=== PATIENT | female | born 1975 | race Caucasian/White ===

== ENCOUNTER 2024-09-07 10:01 | Outpatient (AMB) | payer OTHER, SELFPAY ==
--- NOTE | 2024-09-07 10:26 | A.OFFVIS_ITS ---
Intake Visit Reasons: CTS Allergies No Known Allergies Allergy (Verified 09/06/24 16:15) Medication List - Last Reconciled 09/07/24 by Ortiz Bruno MD amitriptyline 25 mg PO BEDTIME amlodipine 2.5 mg PO DAILY loratadine (Claritin) 10 mg PO DAILY omeprazole 20 mg PO DAILY ondansetron HCl 4 mg PO DAILY PRN rizatriptan take 1 tab at onset of headache; if no relief may repeat 1 tab after at least 2 hrs; max = 3 tabs/24 hr PO HPI Comments Details: No headache recurrence in the last month. Neck feels good doing home exrcises. She has cervical degenerative disc disease at C5-6, and headaches that started about a year ago and have been occurring once or twice a week.? She usually wakes up with it.?She used to get migraines which he gets rather infrequently once or twice a year now.? The migraines are associated with nausea, vomiting, photophobia and sonophobia and she has to go to bed for a day.? Migraines are triggered by MSG.? Her mother has ocular migraines.? Current headaches are very different from her migraines.? When she gets these headaches, she feels a little loopy and has difficulty with her train of thought ?and feels like she is in a fog. For the last year, she has occasional numbness and tingling in the hands right greater than left and sometimes drops things that she is holding.? 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 She has trouble initiating and maintaining sleep.? She takes melatonin, and magnesium.? There's no history of head or neck trauma. 09/01/24 NCV/ EMG of upper limbs was normal. [facility] Medical History (Updated 09/07/24 @ 10:35 by Ortiz Bruno MD) Insomnia Cervical disc disease Hypertension Social History (Updated 09/06/24 @ 16:14 by Princess Junior MA) Alcohol intake: never Patient Tobacco Use Status: Never used Tobacco Physical Exam Neuro Other: Abnormal neurological findings:??none.? Mental Status:?alert and oriented X 3,?Normal attention, orientation, memory and affect.? Cranial Nerves:?Pupils are equal, round and reactive to light. Fundoscopy shows normal disc bilaterally. External occular muscles are intact. Visual bach are full, no ptosis. Face is symmetrical, no facial weakness or droop. Facial sensations are normal. Tongue protrudes in midline. Palate elevates symm etrically. Shoulder shrugging is normal..? Motor Examination:?Normal muscle tone, bulk and strength,?No atrophy or fasciculations,?No drift of the extended upper extremities,?Deep tendon reflexes are 2+?,?Plantars are flexor?.? Motor Strength:?Proximal Muscles (out of 5):5Distal Muscles (out of 5):5Neck Flexors (out of 5):5Neck Extensors (out of 5):5Deltoid (out of 5):5Biceps (out of 5):5Triceps (out of 5):5Serratus Anterior (out of 5):5Wrist Extensors (out of 5):5APB (out of 5):5Finger Spread (out of 5):5Ileopsoas (out of 5):5Quadriceps (out of 5):5Hamstrings (out of 5):5Tibialis Anterior (out of 5):5Peronei (out of 5):5EDB (out of 5):5Gastrocnemius (out of 5):5Straight Leg Raising:?90 degrees.? Sensory Exam:?Normal light touch, temperature, pinprick, vibration and joint- position sensations?,?Rhomberg sign is absent.? Coordination:?no ataxia,?no titubation,?yxmnea-[id number]-epnx, pvud-kzcr-zfmg test and rapid alternating movements were normal.? Gait Exam:?Within normal limits.? Cerebellar Signs:?Kkrouv-rt-sbnn and gqfp-qo-owxr is normal,?no dysdiadochokinesia?.? Extrapyramidal System:?No tremor, rigidity with normal facial expressions,?No bradykinesia, no bradyphrenia. Normal arm swing and posture. No propulsion or retropulsion.? Speech:?Normal,?no dysphasia or dysarthria..? Mini Mental Status Exam Level of Consciousness:?Alert.? Orientation:?Knows correct year, month, date, day and season,?Knows correct city, county and state. Knows correct location and floor.? Registration:?Able to register 3 objects.? Attention:?Serial 7's performed accurately.? Recall:?Able to recall 3 out of 3 objects.? Language:?Normal spontaneous speech, fluency, repetition,naming, comprehension, reading and writing.? Total Score:?30/30.? General Examination GENERAL APPEARANCE:?normal,?in no acute distress.? HEAD:?normocephalic,?atraumatic.? EYES:?sclera non-icteric,?conjunctiva clear.? EARS:?auditory canal clear,?tympanic membrane intact, clear.? NOSE:?no lesions.? ORAL CAVITY:?gums normal,?mucosa moist,?no lesions.? THROAT:?clear.? NECK/THYROID:?no cervical lymphadenopathy,?thyroid normal,?neck supple, full ra nge of motion,?no carotid bruit.? SKIN:?no rashes,?no significant birthmarks.? HEART:?S1, S2 normal,?no murmurs.? LUNGS:?clear anteriorly and posteriorly.? CHEST:?no gross rib deformity,?clear to auscultation.? BACK:?normal exam of spine.? EXTREMITIES:?no edema.? PERIPHERAL PULSES:?normal.? PSYCH:?alert, oriented,?cognitive function intact,?cooperative with exam.? Assessment & Plan Assessment & Plan (1) Tension headache: Code(s): G44.209 - Tension-type headache, unspecified, not intractable Category: Medical (2) Migraine: Code(s): G43.909 - Migraine, unspecified, not intractable, without status migrainosus Category: Medical (3) Carpal tunnel syndrome: Code(s): G56.00 - Carpal tunnel syndrome, unspecified upper limb Category: Medical Plan Continue current meds. Wear wrist splint at night as needed Medications: New amitriptyline 25 mg PO BEDTIME 90 tabs 2RF Coding Level of Care Code Est Pt Level 4 (24790) Diagnoses Tension headache G44.209 Migraine G43.909 Carpal tunnel syndrome G56.00
--- OUTSIDE RECORDS SUMMARY | 2024-09-07 11:03 | XMS_ITS | Clinical Summary ---
Author Organization [place] [address] [address] [facility] Building Address [facility] [place] [address] Phone Care Team Providers Care Autopsy Pathologist Name Role Phone Dana Mcfadden NP Primary Care Provider Allergies No known active allergies Medications OMEPRAZOLE ORAL Take by mouth 1 (one) time each day. Active cholecalciferol, vitamin D3, (VITAMIN D3 ORAL) Take by mouth. Active loratadine/pseud oephedrine (CLARITIN-D 12 HOUR ORAL) Active amLODIPine (NORVASC) 2.5 mg tablet TAKE 1 TABLET BY MOUTH 1 TIME EACH DAY. 90 tablet 1 07/19/2024 Active Active Problems Problem Noted Date Diagnosed Date Foraminal stenosis of cervical region 07/09/2024 Assessment & Plan (07/10/2024 12:17 AM EDT): Patient describes chronic mild neck pain x 2 years approximately, over the last year she has noticed tingling that started in the hands, more of a throbbing pulsing sensation without pain, numbness in her hands, right >left. She notes she will drop things at times. She gets occipital headaches, sometimes frontal headaches. 2 weeks ago she had an episode where she was holding a student's hand at school, they dropped down and pulled on her right arm, since then her neck pain has been much worse. She also notes that she has her neck in flexion, reads a lot, sometimes falls asleep slouched forward, which she thinks might contribute as well. The n/t in her hands does not wake her up at night or get worse with wrist extension/flexion. Her hands can feel stiff in the morning. She has been using Heat on her neck, no other OTC meds/topicals. She rates her pain 7/10. She had C/S MRI with overall mild degenerative changes, but she does have C5-6 disc bulging with b/l foraminal stenosis. I reviewed the MRI images with her and her on the computer. Ms. Ho has C5-6 foraminal stenosis, cervical spondylosis, negative Tinel's and reverse prayer sign. I did not order EMG/NCS, does not seem like CTS. We talked about conservative treatment options for neck pain and radiculopathy, like PT with traction, TENS unit, acupuncture. She would like to try these txs, rx given. We talked about good posture and core strengthening exercises that will not put tension/stress on her neck like bug, bird dogs, standing marches, haloes, bridges, etc. she works out regularly at the gym (used to go with her to work out together but he is recovering from knee surgeries), will avoid any exercises that increase her neck pain. She can go over rec: stretches and exercises with PT as well. All questions answered, I asked her to call with any concerns or questions. She will call for f/u appt if she has persistent neck pain and hand n/t. (She has upcoming appt with neurology for her Brain MRI results of pineal cyst.) HTN (hypertension), benign 03/01/2024 Vitamin D deficiency 09/24/2023 Allergic rhinitis 06/05/2022 Encounters Date Type Department Care Team Description 08/23/2024 7:30 AM EDT Treatment [address] [phone] Ronnie Yan, SUBSCRIPTION CREW LEADER Foraminal stenosis of cervical region (Primary Dx) 08/18/2024 4:30 PM EDT Treatment [facility] [address] [phone] Olga Bills, PT Foraminal stenosis of cervical region (Primary Dx) 08/16/2024 7:30 AM EDT Treatment [address] [phone] Ronnie Yan, SUBSCRIPTION CREW LEADER Foraminal stenosis of cervical region (Primary Dx) 08/09/2024 7:30 AM EDT Treatment [address] [phone] Ronnie Yan, SUBSCRIPTION CREW LEADER Foraminal stenosis of cervical region (Primary Dx) 08/06/2024 7:30 AM EDT Treatment [address] [phone] Olga Bills, PT Foraminal stenosis of cervical region (Primary Dx) 08/03/2024 7:30 AM EDT Treatment [address] [phone] Olga Bills, PT Foraminal stenosis of cervical region (Primary Dx) 07/14/2024 4:00 PM EDT Evaluation [address] [phone] Olga Bills, PT Foraminal stenosis of cervical region (Primary Dx) 07/09/2024 10:30 AM EDT Consult Neurosurgery [facility] [address] [phone] Courtney Foreman PA Foraminal stenosis of cervical region 06/23/2024 3:12 PM EDT - 06/23/2024 11:59 PM EDT Hospital Encounter Radiology Department - [address] [phone] Hand weakness; Hand tingling; Acute nonintractable headache, unspecified headache type; Altered mental status, unspecified altered mental status type Discharge Disposition: Home or Self Care 06/23/2024 3:11 PM EDT - 06/23/2024 11:59 PM EDT Hospital Encounter Radiology Department - [address] [phone] Hand weakness; Hand tingling; Acute nonintractable headache, unspecified headache type; Altered mental status, unspecified altered mental status type Discharge Disposition: Home or Self Care from Last 3 Months Immunizations Name Administration Dates Next Due Moderna SARS-CoV-2 COVID-19, mRNA, LNP-S, preservative free 01/08/2022 Surgical History Surgery Date Site/Laterality Comments OTHER SURGICAL HISTORY 2014 SUBTOTAL THYROIDECTOMY; COMMENT: benign pathology TONSILLECTOMY OTHER SURGICAL HISTORY BREAST MASS CORE BIOPSY SPCMN PATHOLGY EXAM Medical History Medical History Date Comments Cyst, breast Nontoxic single thyroid nodule Family History Medical History Relation Name Comments Other cancer Aunt Coronary artery disease Father Heart attack Father Breast cancer Paternal Grandmother Stroke Paternal Grandmother Coronary artery disease Sister Heart attack Sister Relation Name Status Comments Aunt Alive Father Paternal Grandmother Sister Social History Tobacco Use Types Packs/Day Years Used Date Smoking Tobacco: Never Smokeless Tobacco: Never Tobacco Cessation:Counseling Given: Not Answered Alcohol Use Standard Drinks/Week Comments Not Currently 0 (1 standard drink = 0.6 oz pur e alcohol) Housing Instability Answer Date Recorde d Are you worried that in the next 2 months you may not have stable housing? No 05/30/2024 Food Access & Nutrition Answer Date Rec orded Do you have access to a vari ety of food including fruits and vegetables? Yes 05/30/2024 Access to Healthcare Answer Date Record ed Within the last 3 months, ho w many times did you visit the emergency department for your medical care? 0 05/30/2024 Health Literacy Answer Date Recorded How often do you need to hav e someone help you when you read instructions, pamphlets, or other written material from your doctor or pharmacy? Never 05/30/2024 Caregiver: How often do you need to have someone help you when you read instructions, pamphlets, or other written material from your doctor or pharmacy? Not on file 05/30/2024 Financial Risk Answer Date Recorded How hard is it for you to pa y for the very basics like food, housing, medical care, and air conditioning / heating? Not very hard 05/30/2024 Transportation Answer Date Recorded Has the lack of transportati on kept you from meetings, work, or from getting things needed for daily living? No Has the lack of transportati on kept you from medical appointments or from getting medications? No 05/30/2024 Social Isolation Answer Date Recorded How often do you feel lonely or isolated from th ose around you? Rarely 05/30/2024 Food Risk Answer Date Recorded Within the past 12 months we worried whether our food would run out before we got money to buy more. Never true 05/30/2024 Within the past 12 months th e food we bought just didn't last and we didn't have money to get more. Never true 05/30/2024 Dependent Care Answer Date Recorded Do you need help finding or paying for care for your loved ones. For example, child development professor or elderly care for an older adult? No 05/30/2024 Education Answer Date Recorded Do you think completing more education or training, like finishing a GED, going to college, or learning a trade, would be helpful for you? N/A 05/30/2024 Employment and Income Answer Date Recor ded During the last four weeks, have you been actively looking for work? No 05/30/2024 Living Situation Answer Date Recorded What is your living situation? 0 05/30/2024 Comments No Sex and Gender Information Value Date Recorded Sex Assigned at Female 01/20/2024 1:23 PM EST Legal Sex Female 3:24 AM EST Gender Identity Female 01/20/2024 1:23 PM EST Sexual Orientation Straight 01/20/2024 1: 23 PM EST Obstetrics History Last Filed Vital Signs Vital Sign Reading Time Taken Comments Blood Pressure 122/86 06/02/2024 4:01 PM EDT A Pulse 82 06/02/2024 4:01 PM EDT Temperature 36.5 C (97.7 F) 01/16/2024 9:45 AM EST Respiratory Rate 16 01/16/2024 1:22 PM EST Oxygen Saturation 97% 01/16/2024 1:22 PM EST Inhaled Oxygen Concentration - - Weight 68 kg (150 lb) 07/09/2024 10:24 AM EDT Height 157.5 cm (5' 2 ) 07/09/2024 10:24 AM EDT Body Mass Index 27.44 07/09/2024 10:24 AM EDT Plan of Treatment Upcoming Encounters Date Type Department Care Team (Late st Contact Info) Description 09/30/2024 9:00 AM EDT Treatment [facility] [address] [phone] Olga Bills, PT 10/19/2024 4:00 PM EDT Office Visit Internal Medicine - [facility] [address] [place] [address] Dana Mcfadden, [employer]RIX PLATER [address] [place] [address] Health Maintenance Due Date Last Done Comments DTaP,Tdap,and Td Vaccines (1 - Tdap) 1996 Hepatitis B Vaccines (1 of 3 - 19+ 3-dose series) 1996 COVID-19 Vaccine (2 - Moderna risk series) 02/05/2022 01/08/2022 Colorectal Cancer Screening: Colonoscopy 02/10/2022 HIV Screening 02/10/2022 Hepatitis C Screening 02/10/2022 Cervical Cancer Screening: Pap Smear 03/01/2024 03/01/2021 Influenza Vaccine (Season Ended) 2024 Hypertension/CHF/CAD Annual BMP Blood Test 01/15/2025 01/16/2024, 09/26/2023, 09/26/2023 Depression Screening 05/30/2025 05/30/2024 Social Influencers of Health Screening 05/30/2025 05/30/2024 Breast Cancer Screening 07/06/2025 07/07/19 24, 03/20/2022, 03/13/2021, Additional history exists Cholesterol Screening (Lipid Panel) 09/25/2028 09/26/2023, 09/26/2023 HIB Vaccines Aged Out No longer eligi ble based on patient's age to complete this topic HPV Vaccines Aged Out No longer eligi ble based on patient's age to complete this topic Hepatitis A Vaccines Aged Out No long er eligible based on patient's age to complete this topic IPV Vaccines Aged Out No longer eligi ble based on patient's age to complete this topic MMR Vaccines Aged Out No longer eligi ble based on patient's age to complete this topic Meningococcal ACWY Vaccine Aged Out N o longer eligible based on patient's age to complete this topic Meningococcal B Vaccine Aged Out No l onger eligible based on patient's age to complete this topic Pneumococcal Vaccine: Pediatrics (0 to 5 Years) and At-Risk Patients (6 to 64 Years) Aged Out No longer eligible based on patient's age to complete this topic RSV Immunization Patients Under 20 months Aged Out No longer eligible based on patient's age to complete this topic Varicella Vaccines Aged Out No longer eligible based on patient's age to complete this topic Procedures Procedure Name Priority Date/Time Associated Diagnosis Comments MR BRAIN WO CONTRAST Routine 06/23/2024 4:05 PM EDT Hand weakness Hand tingling Acute nonintractable headache, unspecified headache type Altered mental status, unspecified altered mental status type MR CERVICAL SPINE WO CONTRAST Routine 06/23/2024 4:04 PM EDT Hand weakness Hand tingling Acute nonintractable headache, unspecified headache type Altered mental status, unspecified altered mental status type COMPREHENSIVE METABOLIC PANEL STAT 01/16/2024 9:54 AM EST LIPID PANEL Routine 09/26/2023 MAYDA SCREENING DIGITAL Routine 07/07/2023 10:18 AM EDT Encounter for screening mammogram for malignant neoplasm of breast HM PAP SMEAR Routine 03/01/2021 from Last 3 Months or Most Recently Relevant to Health Maintenance Results * MR Brain wo Contrast (06/23/2024 4:05 PM EDT) Anatomical Region Laterality Modality Head and Neck Magnetic Resonan ce 06/23/2024 11:4 4 PM EDT Impressions 06/24/2024 7:02 PM EDT 0.8 cm cystic-appearing lesion in the pineal gland statistically represents an incidental pineal cyst. Recommend contrast enhancement MRI for complete characterization. No evidence of an acute intracranial process. No evidence of demyelinating disease. POS - [id number]. -------- FINAL REPORT -------- Dictated By: Dolly Mendoza Dictated Date: 06/23/2024 23:44 ET Assigned Physician: Dolly Mendoza Reviewed and Electronically Signed By: Dolly Mendoza Signed Date: 06/24/2024 19:02 ET Workstation ID: [id number] Transcribed By: Self Edit Transcribed Date: 06/23/2024 23:47 ET Narrative 06/24/2024 7:02 PM EDT EXAM: Brain MRI HISTORY: Chronic headache. Hand weakness and tingling. COMPARISON: None CORRELATION: None TECHNIQUE: Exam performed on a 1.5 Anabel high-field MRI scanner. Multiplanar imaging performed without contrast. FINDINGS: No restricted diffusion to indicate a recent infarct. No evidence of intracranial hemorrhage. No significant signal abnormality in the brain parenchyma. 0.8 cm cystic-appearing lesion in the pineal gland. No mass effect on the tectal plate. No parenchymal mass, mass effect, or midline shift. No hydrocephalus. Basal cisterns are patent. Low-lying cerebellar tonsils. Pituitary gland is not enlarged. Normal vascular flow-voids appear present in the major intracranial arteries at the skull base. Distal right vertebral artery flow void is hypoplastic which can be a normal variant. Mild mucosal thickening in the ethmoid sinuses and left sphenoid sinus. No significant fluid signal within mastoid air cells. Procedure Note Dolly Mendoza MD - 06/24/2024 EXAM: Brain MRI HISTORY: Chronic headache. Hand weakness and tingling. COMPARISON: None CORRELATION: None TECHNIQUE: Exam performed on a 1.5 Anabel high-field MRI scanner.Multiplanar imaging performed without contrast. FINDINGS: No restricted diffusion to indicate a recent infarct. No evidence ofintracranial hemorrhage. No significant signal abnormality in the brainparenchyma. 0.8 cm cystic-appearing lesion in the pineal gland. No mass effect on thetectal plate. No parenchymal mass, mass effect, or midline shift. Nohydrocephalus. Basal cisterns are patent. Low-lying cerebellar tonsils.Pituitary gland is not enlarged. Normal vascular flow-voids appearpresent in the major intracranial arteries at the skull base. Distal rightvertebral artery flow void is hypoplastic which can be a normal variant. Mild mucosal thickening in the ethmoid sinuses and left sphenoid sinus. Nosignificant fluid signal within mastoid air cells. IMPRESSION: 0.8 cm cystic-appearing lesion in the pineal gland statisticallyrepresents an incidental pineal cyst. Recommend contrast enhancement MRIfor complete characterization. No evidence of an acute intracranial process. No evidence of demyelinatingdisease. POS - [id number]. -------- FINAL REPORT -------- Dictated By: Dolly Mendoza Dictated Date: 06/23/2024 23:44 ET Assigned Physician: Dolly Mendoza Reviewed and Electronically Signed By: Dolly Mendoza Signed Date: 06/24/2024 19:02 ET Workstation ID: [id number] Transcribed By: Self Edit Transcribed Date: 06/23/2024 23:47 ET Dana Mcfadden NP IMG MRI PROCEDURES Final Result * MR Cervical Spine wo Contrast (06/23/2024 4:04 PM EDT) Anatomical Region Laterality Modality C-spine, Spine Magnetic Resonan ce 06/23/2024 11:4 7 PM EDT Impressions 06/24/2024 7:01 PM EDT Degenerative changes at C5-6 with severe bilateral neural foraminal narrowing. Other much milder degenerative changes at a few other levels. POS - [id number] -------- FINAL REPORT -------- Dictated By: Dolly Mendoza Dictated Date: 06/23/2024 23:47 ET Assigned Physician: Dolly Mendoza Reviewed and Electronically Signed By: Dolly Mendoza Signed Date: 06/24/2024 19:01 ET Workstation ID: [id number] Transcribed By: Self Edit Transcribed Date: 06/23/2024 23:48 ET Narrative 06/24/2024 7:01 PM EDT EXAM: Cervical spine MRI HISTORY: Cervical radiculopathy. Hand weakness and tingling, right greater than left. COMPARISON: None CORRELATION: None TECHNIQUE: Exam performed on a 1.5 Anabel high-field MRI scanner. Multiplanar imaging performed without contrast. FINDINGS: No cord signal abnormality detected. No significant narrowing at the craniocervical junction. Vertebral body heights are maintained. No focal suspicious bone lesion. Right thyroid lobe is surgically absent. C2-3: No significant disc bulging or evidence of a disc protrusion or extrusion. No significant neural foraminal narrowing or spinal canal stenosis. C3-4: No significant disc bulging or evidence of a disc protrusion or extrusion. Minimal bilateral uncovertebral spurring. No significant neural foraminal narrowing or spinal canal stenosis. C4-5: Tiny right paracentral disc protrusion best seen on axial sequences without compression on the cord. No significant neural foraminal narrowing or spinal canal stenosis. C5-6: Loss of disc height with diffuse disc bulging which partially effaces the anterior subarachnoid space. Bilateral uncovertebral osteophytes. Severe bilateral neural foraminal narrowing. Mild narrowing of the spinal canal. C6-7: No significant disc bulging or evidence of a disc protrusion or extrusion. No significant neural foraminal narrowing or spinal canal stenosis. C7-T1: No significant disc bulging or evidence of a disc protrusion or extrusion. No significant neural foraminal narrowing or spinal canal stenosis. Procedure Note Dolly Mendoza MD - 06/24/2024 EXAM: Cervical spine MRI HISTORY: Cervical radiculopathy. Hand weakness and tingling, rightgreater than left. COMPARISON: None CORRELATION: None TECHNIQUE: Exam performed on a 1.5 Anabel high-field MRI scanner.Multiplanar imaging performed without contrast. FINDINGS: No cord signal abnormality detected. No significant narrowing at thecraniocervical junction. Vertebral body heights are maintained. No focal suspicious bone lesion. Right thyroid lobe is surgically absent. C2-3: No significant disc bulging or evidence of a disc protrusion orextrusion. No significant neural foraminal narrowing or spinal canalstenosis. C3-4: No significant disc bulging or evidence of a disc protrusion orextrusion. Minimal bilateral uncovertebral spurring. No significant neuralforaminal narrowing or spinal canal stenosis. C4-5: Tiny right paracentral disc protrusion best seen on axial sequenceswithout compression on the cord. No significant neural foraminal narrowingor spinal canal stenosis. C5-6: Loss of disc height with diffuse disc bulging which partiallyeffaces the anterior subarachnoid space. Bilateral uncovertebralosteophytes. Severe bilateral neural foraminal narrowing. Mild narrowingof the spinal canal. C6-7: No significant disc bulging or evidence of a disc protrusion orextrusion. No significant neural foraminal narrowing or spinal canalstenosis. C7-T1: No significant disc bulging or evidence of a disc protrusion orextrusion. No significant neural foraminal narrowing or spinal canalstenosis. IMPRESSION: Degenerative changes at C5-6 with severe bilateral neural foraminalnarrowing. Other much milder degenerative changes at a few other levels. POS - [id number] -------- FINAL REPORT -------- Dictated By: Dolly Mendoza Dictated Date: 06/23/2024 23:47 ET Assigned Physician: Dolly Mendoza Reviewed and Electronically Signed By: Dolly Mendoza Signed Date: 06/24/2024 19:01 ET Workstation ID: [id number] Transcribed By: Self Edit Transcribed Date: 06/23/2024 23:48 ET Dana Mcfadden NP IM MRI PROCEDURES Final Result * Comprehensive metabolic panel (01/16/2024 9:54 AM EST) Sodium 142 133 - 145 mmol/L LAB CHEMISTRY METHOD 01/16/2024 10:[address] [facility] Potassium 4.0 3.5 - 5.5 mmol/L LAB CHEMISTRY METHOD 01/16/2024 10:[address] [facility] Chloride 110 96 - 110 mmol/L LAB CHEMISTRY METHOD 01/16/2024 10:[address] [facility] CO2 29 21 - 32 mmol/L LAB CHEMISTRY METHOD 01/16/2024 10:[address] [facility] Anion Gap 3 3 - 11 LAB CHEMISTRY METHOD 01/16/2024 10:[address] [facility] Glucose 86 70 - 100 mg/dL LAB CHEMISTRY METHOD 01/16/2024 10:[address] [facility] BUN 13 5 - 25 mg/dL LAB CHEMISTRY METHOD 01/16/2024 10:[address] [facility] Creatinine 0.68 0.50 - 1.10 mg/dL LAB CHEMISTRY METHOD 01/16/2024 10:[address] [facility] eGFR 109 >=60 mL/min/1. 73m2 LAB CHEMISTRY METHOD 01/16/2024 10:[address] [facility] Comment:Calculation based on the Chronic Kidney Disease Epidemiology Collaboration (CKD-EPI) equation refit without adjustment for race. BUN/Creatinine Ratio 19.1 LAB CHEMISTRY METHOD 01/16/2024 10:[address] [facility] Calcium 9.2 8.5 - 10.5 mg/dL LAB CHEMISTRY METHOD 01/16/2024 10:[address] [facility] AST (SGOT) 23 10 - 42 unit/L LAB CHEMISTRY METHOD 01/16/2024 10:[address] [facility] ALT (SGPT) 16 10 - 60 unit/L LAB CHEMISTRY METHOD 01/16/2024 10:[address] [facility] Alkaline Phosphatase 72 42 - 121 unit/L LAB CHEMISTRY METHOD 01/16/2024 10:[address] [facility] Total Protein 7.1 6.0 - 8.0 g/dL LAB CHEMISTRY METHOD 01/16/2024 10:[address] [facility] Albumin 3.7 3.2 - 5.0 g/dL LAB CHEMISTRY METHOD 01/16/2024 10:[address] [facility] Total Bilirubin 0.6 0.0 - 1.4 mg/dL LAB CHEMISTRY METHOD 01/16/2024 10:[address] [facility] Blood Venous blood specimen / Unknown Venipuncture / Unknown 01/16/2024 9:54 AM EST 01/16/2024 10:06 AM EST us Venkata Neri MD LAB BLOOD ORDERABLES Final Result [facility] [address] [place] [address], * Lipid panel (09/26/2023) LDL/HDL Ratio 3 Triglycerides 59 mg/dL Cholesterol 163 mg/dL HDL 62 mg/dL LDL Cholesterol 90 mg/dL Blood Venous blood specimen / Unknown us Historical Provider LAB BLOOD ORDERABLES Sari roberts Result * [facility] SCREENING DIGITAL (07/07/2023 10:18 AM EDT) Anatomical Region Laterality Modality Mammography 07/03/2023 8:17 AM EDT Narrative 07/07/2023 10:18 AM EDT [facility] Diagnostic Imaging Department [address] [place] [id number] Patient: GEORGIASARANYALEA /Age/Sex: 1975 - 47 - F Unit#: [id number] Location/Status: [facility]/REG CLI Mnemonic/Ordering Site: [facility] Ordering Physician: SMITH SCHRADER APRN [facility] Screening Digital - 07/05/23 - 0817 Report Status:Signed EXAM: [facility] Screening Digital EXAM DATE AND TIME: 07/05/2023 8:17 AM HISTORY: Screening. Cyst aspiration right breast. COMPARISON: 03/20/22, 03/13/21, 01/21/20 TECHNIQUE: Bilateral digital breast tomosynthesis was performed in the CC and MLO projections. Computer aided detection with Color Eight 3D 3.1 was employed. TISSUE DENSITY: c. The breasts are heterogeneously dense, which may obscure small masses. FINDINGS: Two adjacent circumscribed round masses are present in the posterior 3:00 position of the right breast, approximately 5 cm from the nipple, measuring 19 mm and 16 mm in diameter, respectively. Targeted ultrasound is recommended. A 6 mm circumscribed nodule is present in the middle 6:00 position of the left breast, approximately 3 to 4 cm from the nipple. Targeted ultrasound is recommended. No grouped microcalcifications or areas of architectural distortion are seen. A biopsy marker is again seen in the upper outer right breast. The skin and vascularity are unremarkable. IMPRESSION: Bilateral circumscribed breast masses, as described, for which targeted ultrasound is recommended. The patient will be called back. BI-RADS: Category 0: Incomplete - Need Additional Imaging Evaluation RECOMMENDATION(S): 1: Ultrasound follow-up BILATERAL Dictating Physician: GLADIS MELENDREZ MD Electronically Signed by: GLADIS MELENDREZ MD Dic Date/Time: 07/07/23 101 Sign date/Time: 07/07/23 101 Procedure Note Gladis Melendrez MD - 10/27/2023 [facility] Diagnostic Imaging Department [address] [place] [address] Patient: LEA HO Asha AshleyB./Age/Sex: 1975 - 47 - F Unit#: [id number] Location/Status: [facility] CLI Mnemonic/Ordering Site: [facility] Ordering Physician: SMITH SCHRADER APRN [facility] Screening Digital - 07/05/23 - 0817 Report Status:Signed EXAM: [facility] Screening Digital EXAM DATE AND TIME: 07/05/2023 8:17 AM HISTORY: Screening. Cyst aspiration right breast. COMPARISON: 03/20/22, 03/13/21, 01/21/20 TECHNIQUE: Bilateral digital breast tomosynthesis was performed in the CCand MLO projections. Computer aided detection with iCAD Citiz[employer] 3D 3.1was employed. TISSUE DENSITY: c. The breasts are heterogeneously dense, which mayobscure small masses. FINDINGS: Two adjacent circumscribed round masses are present in the posterior3:00 position of the right breast, approximately 5 cm from the nipple,measuring 19 mm and 16 mm in diameter, respectively. Targeted ultrasound isrecommended. A 6 mm circumscribed nodule is present in the middle 6:00 position of theleft breast, approximately 3 to 4 cm from the nipple. Targeted ultrasound is recommended. No grouped microcalcifications or areas of architectural distortion areseen. A biopsy marker is again seen in the upper outer right breast. The skinand vascularity are unremarkable. IMPRESSION: Bilateral circumscribed breast masses, as described, for which targeted ultrasound is recommended. The patient will be called back. BI-RADS: Category 0: Incomplete - Need Additional Imaging Evaluation RECOMMENDATION(S): 1: Ultrasound follow-up BILATERAL Dictating Physician: GLADIS MELENDREZ MD Electronically Signed by: GLADIS MELENDREZ MD Dic Date/Time: 07/07/23 1017 Sign date/Time: 07/07/23 1018 Dana Mcfadden NP IMG BI PROCEDURES Final Result * Pap Smear (03/01/2021) HM Pap smear No Interpretation , Abstracted Historical Provider HEALTH MAINTENANCE Final Result from Last 3 Months or Most Recently Relevant to Health Maintenance Insurance [facility] Care Teams Autopsy Pathologist Relationship Specialty Start Date End Date Dana Mcfadden NP [address] [facility] [place] [id number] PCP - General Primary Care 02/25/24
== END 2024-09-07 10:38 | disposition home or self-care (01) ==
LOC: HO.HSM 10:02
PROVIDERS: PCP Nurse Practitioner Primary Care; Visit Provider Psychiatry & Neurology Neurology
DX: G44.209 Tension-type headache, unspecified, not intractable (principal); G43.909 Migraine, unspecified, not intractable, without status migrainosus; G56.00 Carpal tunnel syndrome, unspecified upper limb
CPT/HCPCS: 99214